=== PATIENT | female | born 1950 | race Caucasian/White ===

== ENCOUNTER 2019-10-26 08:22 | Emergency (ER) | payer SELFPAY ==
[~2019-10-26] VITALS: Ht 160 cm; Wt 43.0 kg
[2019-10-26] MEDS ORDERED: SODIUM CHLORIDE 0.9% 1000ML BAG (SEPSIS BOLUS) IV ONE (08:45)
[2019-10-26] MEDS ORDERED: VANCOMYCIN 1 G PREMIX 200 ML IV ONE (08:45)
[2019-10-26] MEDS ORDERED: PIPERACILLIN/TAZ 3.375G PREMIX 50 ML IV ONE (08:45)
[2019-10-26] MEDS ORDERED: ACETAMINOPHEN 325MG TABLET PO ONE (09:00)
[2019-10-26 09:16] LABS: INR 1.1; PROTHROMBIN TIME 11.6 sec (9.6-11.0)
[2019-10-26 09:17] LABS: CHLORIDE 101 mEq/L (98-107); MEAN CORPUSCULAR HEMOGLOBIN 29.9 pg (28.0-32.0); MEAN CORPUSCULAR VOLUME 89.9 fL (81.0-99.0); MEAN PLATELET VOLUME 9.1 fl (7.4-10.4); RED CELL DISTRIBUTION WIDTH 18.3 % (11.6-14.6)
[2019-10-26 09:27] LABS: PLATELET 28 x1000/uL (130-400)
[2019-10-26] MEDS ORDERED: ACETAMINOPHEN 650MG SUPP PR ONE (09:30)
[2019-10-26 10:15] LABS: PLATELET ESTIMATE MARKEDLY DECREASED
[2019-10-26 11:51] LABS: CLARITY URINE CLEAR (CLEAR); COLOR URINE YELLOW (YELLOW); KETONES URINE NEGATIVE (NEGATIVE); LEUKOCYTE ESTERASE URINE 1+ (NEGATIVE); NITRITE URINE NEGATIVE (NEGATIVE); OCCULT BLOOD URINE 2+ (NEGATIVE); PROTEIN URINE 1+ (NEGATIVE); SPECIFIC GRAVITY URINE 1.019 (1.005-1.030)
[2019-10-26 15:15] VITALS: BP 130/76
== END 2019-10-26 15:14 | disposition short-term general hospital (02) ==
LOC: ER 08:41 → CANBEDREQ 14:16 → ER 15:14
DX: A41.9 Sepsis, unspecified organism (principal); N39.0 Urinary tract infection, site not specified; E11.9 Type 2 diabetes mellitus without complications
CPT/HCPCS: 36415; 70450; 71045; 80053; 81003; 83605; 84145; 84484; 85025; 85610; 87040; 87086; 87186; 93005; 96365; 96366; 96368; 99291; J2543; J3370; J7030